=== PATIENT | male | born 1985 | race Caucasian/White ===

== ENCOUNTER → 2016-08-22 | Outpatient (CLI) | payer OTHER | LOC: US 08:55 | DX: R74.0 Nonspecific elevation of levels of transaminase and lactic acid dehydrogenase [LDH] (principal); R93.2 Abnormal findings on diagnostic imaging of liver and biliary tract | CPT/HCPCS: 76705 ==

== ENCOUNTER 2017-02-11 11:03 | Emergency (ER) | payer BC | END 2017-02-11 11:49 | disposition home or self-care (01) | LOC: ER1 11:03 | DX: H66.91 Otitis media, unspecified, right ear (principal); G40.909 Epilepsy, unspecified, not intractable, without status epilepticus; Z79.899 Other long term (current) drug therapy | CPT/HCPCS: 99282 ==

== ENCOUNTER → 2020-09-13 | Outpatient (CLI) | payer BC ==
[~2020-09-13] MED LIST: AMOXICILLIN875 MG PO; NAPROSYN500 MG PO
== END ==
LOC: EXRD 07-25 08:00
DX: R74.8 Abnormal levels of other serum enzymes (principal); R06.83 Snoring; K76.0 Fatty (change of) liver, not elsewhere classified
CPT/HCPCS: 76705

== ENCOUNTER 2021-11-17 13:23 | Emergency (ER) | payer BC | END 2021-11-17 16:22 | disposition home or self-care (01) | LOC: ER1 13:23 | DX: R07.0 Pain in throat (principal); G40.909 Epilepsy, unspecified, not intractable, without status epilepticus | CPT/HCPCS: 70360; 96372; 99283; J1885 ==